=== PATIENT | female | born 1955 | race Caucasian/White ===

== ENCOUNTER 2016-08-01 01:11 | Inpatient (IN) | payer OTHER ==
[~2016-08-01] VITALS: Ht 154.9 cm; Wt 85.3 kg
[~2016-08-01 01:11] MED LIST: FEMARA2.5 M1 PO; HYDROCODON-ACE1 EAC2 PO; LIPITOR20 M2 PO; TRAMADOL HCL50 M1 PO; VITAMIN D2000 UNI1 PO
--- NOTE | 2016-08-01 10:04 | Admission Core Measures ---
Admission Meds I reviewed the following Meds: Current Medications Sig/Gaudencio Start time Last Medication Dose Stop Time Status Admin Acetaminophen 975 MG ONCE 08/01 NR (Tylenol) 08/01 2358 Atorvastatin Calcium 20 MG DAILY 08/01 1000 UNVr (Lipitor) Cefazolin Sodium 2,000 MG ONCE 08/01 NR (Kefzol-Ancef Inj) 08/01 2358 Letrozole 2.5 MG DAILY 08/01 1000 UNVr (Femara 2.5MG) Oxycodone HCl 10 MG ONCE 08/01 NR (Roxicodone) 08/01 2358 Acute Coronary Syndrome Inclusion Criteria ACS Diagnosis No Inpatient Core Measures LDL Reminder: If No, please order W/I first 24hr of stay Congestive Heart Failure Inclusion Criteria CHF Diagnosis No Cerebrovascular accident Inclusion Criteria CVA/TIA Diagnosis No Inpatient Core Measures Bedside Swallow Eval Reminder: If BSE failed, place ST order Antithrombotic Reminder: Order Antithrombotic Medication by end of day 2 Antithrombotic Reminder: Document Reason Antithrombotic Not ordered by end of day 2 AFIB/Flutter Reminder: If Present, add to problem list AFIB/Flutter Reminder: Order Anticoag Medication for pts with AFIB/Flutter Atherosclerosis Reminder: If Present, add to problem list LDL Reminder: If No, please order W/I first 24hr of stay PT Order Reminder: If No, please order Venous thromboembolism Inpatient Core Measures VTE Risk Factors: Age > 40, Surgery VTE Prophylaxis Ordered Inpt Mech & Pharm No Mech VTE prophylaxis d/t No contraindications No VTE Pharm Prophylaxis d/t No contraindications Inclusion Criteria - Per Current guidelines, there needs to be overlap - treatment for the first 5 days of Warfarin therapy. - Parenteral Anticoagulation (IV or SC) needs to be - given along with Warfarin therapy. VTE Diagnosis No VTE Type NONE VTE Confirmed by (Test) NONE Problem List As ranked by this Provider includes Assessment & Plan 1. Status post total hip replacement, left HOME MEDS Home Med List Atorvastatin Calcium (Lipitor) 20 MG TABLET 1 TAB PO DAILY CHOLESTEROL ( Reported) Cholecalciferol (Vitamin D3) (Vitamin D) 2,000 UNIT TABLET 4,000 UNIT PO DAILY SUPPLEMENT (Reported) Hydrocodone/Acetaminophen (Hydrocodon-Acetaminophen 5-325) 5 MG-325 MG TABLET 1 TAB PO PRN PAIN (Reported) Letrozole (Femara) 2.5 MG TABLET 1 TAB PO DAILY BREAST CANCER (Reported) Tramadol HCl 50 MG TABLET 1 TAB PO PRN PAIN (Reported)
--- NOTE | 2016-08-01 10:06 | Patient Discharge Instructions ---
Discharge Instructions General Discharge Information You were seen/treated for: Joint pain You had these procedures: total hip replacement Watch for these problems: See pre printed sheet Other wound care: See pre printed sheet Diet Recommended Diet: Low Fat Activity Activity Self Limited: Yes Activity Limited to: Weight bear as tolerated Acute Coronary Syndrome Inclusion Criteria At DC or during hospital stay patient has or had the following: ACS DIAGNOSIS No Discharge Core Measures Meds if any: Prescribed or Continued at Discharge Meds if any: NOT Prescribed or Continued at Discharge Congestive Heart Failure Inclusion Criteria At DC or during hospital stay patient has or had the following: CHF DIAGNOSIS No Discharge Core Measures Meds if any: Prescribed or Continued at Discharge Meds if any: NOT Prescribed or Continued at Discharge Cerebrovascular accident Inclusion Criteria At DC or during hospital stay patient has or had the following: CVA/TIA Diagnosis No Discharge Core Measures Meds if any: Prescribed or Continued at Discharge Meds if any: NOT Prescribed or Continued at Discharge Venous thromboembolism Inclusion Criteria VTE Diagnosis No VTE Type NONE VTE Confirmed by (Test) NONE Discharge Core Measures - Per Current guidelines, there needs to be overlap - treatment for the first 5 days of Warfarin therapy. - If discharged on Warfarin prior to 5 days of - overlap therapy, the patient will need to be - assessed for post discharge needs including - *Post discharge parental anticoagulation - *Warfarin and/or parental anticoagulation education - *Follow up date to check INR post discharge At least 5 days overlap therapy as Inpatient No Meds if any: Prescribed or Continued at Discharge Note: Overlap Therapy is Warfarin and Anticoagulant Meds if any: NOT Prescribed or Continued at Discharge
[2016-08-01] MEDS ORDERED: MS CONTIN15 M2 PO (10:11)
[2016-08-01] MEDS ORDERED: DILAUDID2 M1 PO (10:11)
[2016-08-01] MEDS ORDERED: MIRALAX17 G1 PO (10:11)
[2016-08-01] MEDS ORDERED: ASPIRIN EC325 M2 PO (10:11)
[2016-08-01] MEDS ORDERED: COLACE100 M1 PO (10:11)
--- NOTE | 2016-08-01 10:18 | Surg Short-stay <48hrs Dis Sum ---
Visit Information Visit Dates Admission Date: 08/01/16 Discharge Date: 08/01/16 Surgical Short Stay DC Summary Admission Diagnosis: Joint pain Final Diagnosis: s/p total hip replacement Procedure(s): See operative report Summary/Significant Findings: Pt underwent left total hip replacement by Dr Landry. Post op she was able to tolerated a diet, her pain was well controlled with medication, she was able to void spontaneously and she was seen by PT and cleared for discharge home with services. Condition at Discharge: good Discharge Disposition: home health services Discharge instructions provided to patient/family: Yes Post discharge follow-up plan: Keep scheduled appointment with Dr Landry
--- NOTE | 2016-08-01 13:46 | RADIOLOGY REPORT ---
EXAMINATION: XR HIP, LEFT CLINICAL INFORMATION: Total hip prosthesis. COMPARISON: None. TECHNIQUE: Two views of the left hip. FINDINGS: A left total hip prosthesis is present and is in good position. No fractures or dislocations are seen. There is no evidence of prosthesis loosening. IMPRESSION: Normal-appearing left total hip prosthesis.
--- NOTE | 2016-08-01 14:10 | PN- Orthopedic ---
Subjective Subjective: Postop check Patient is now postoperative day #0 status post left total hip arthroplasty. She was seen in PACU. No major complaints of pain. She was tolerating sips of water. No nausea or vomiting. Guy catheter was just removed. Still awaiting void. Since my visit with the patient, she was transferred to the general medical floor and has already been successfully mobilized into a chair. Denies headache, dizziness, chest pain, shortness of breath. Objective Vital Signs and I&Os Vitals are stable. Pt is afebrile. Physical Exam: Gen.: Patient is awake and alert. No acute distress. Cardiac: Regular. No murmurs appreciated. Pulmonary: Lungs are clear to auscultation bilaterally. No wheezes or rales are appreciated. Extremities: The anterior hip dressing is clean, dry, and intact. There is no significant drainage appreciated. Mild thigh swelling is noted, but within expected limits. The operative leg is warm and sensation is intact from the thigh down to the toes bilaterally. Strength of dorsiflexion and plantar flexion are 4-5 on the operative side. Palpable pedal pulses. Assessment/Plan Assessment/Plan Patient is a 60-year-old female who is now postoperative day #0 status post left total hip arthroplasty. She remains stable from a surgical standpoint. Plan: -PT consult for mobilization. WBAT with rolling walker. -Pain control with morphine for now. Po dilaudid when tolerating po. -Advance diet as tolerated. Heplock IV when tolerating adequate po. -Zofran for nausea as needed. -Colace and miralax for bowel regimen. -ASA 325 bid for DVT ppx. Alps and Demario's as well. -Ancef x 2 doses for prophylaxis. -Home meds resumed, including b winston. -Await void. -Plan for discharge most likely today. Core Measures/Miscellaneous Venous Thromboembolism VTE Risk Factors: Age > 40, Cancer/chemo/oth therapy, Surgery VTE Contraindications: No Contraindications VTE Prophylaxis Ordered Inpt: Mech & Pharm VTE Diagnosis: No VTE Type: NONE VTE Confirmed by (Test): NONE Beta Winston Is Beta Winston a Home Med? No Antibiotics Is Patient on Antibiotics? Yes If Yes: prophylaxis
[2016-08-01 14:41] VITALS: BP 110/70
--- NOTE | 2016-08-01 16:32 | NUR ---
1600: PT A/O X3. PT ON RA. VSS. PAIN CONTROLLED WITH DAULDID PO. PT CONSUMED 100% OF MEAL WITH NO N/V. PT OOB W RW W SUPERVISON. DURACOLD X 2 FOR HOME. IV REMOVED. PT SENT HOME W DSD SUPPLIES FOR L HIP SX SITE. PT VERBALIZED UNDERSTANDING OF DISCHARGE INSTRUCTIONS RELATED TO SURGERY. DSD PRESENT TO L HIP W NO DRAINAGE.
--- NOTE | 2016-08-01 16:44 | Operative Report ---
Operative/Inv Procedure Report Surgery Date: 08/01/16 Name of Procedure: Left total hip replacement Pre-Operative Diagnosis: Primary left hip DJD Post-Operative Diagnosis: Same Estimated Blood Loss: 250 Surgeon/Pecan Huller: SKYE REYEZ,PIPPA Maxwell Anesthesia: block Operative/Procedure Note Note: Description of Procedure: The patient was taken to the operating room and positively identified. After induction of spinal anesthesia and administration of appropriate pre-operative antibiotics, the patient was positioned supine on the operating room table and all bony prominences were well padded. After performing a surgical timeout, the left lower extremity was prepped and draped in the usual sterile fashion. A direct anterior approach was made to the left hip. The incision was carried sharply through superficial soft tissues to the level of the fascia. Meticulous hemostasis was maintained with Bovie electocautery. The fascia over the tensor fascia mu muscle was opened sharply and the interval between the TFL and the sartorius was entered bluntly taking care to stay lateral to the lateral femoral cutaneous nerve. Retractors were placed around the femoral neck and the pericapsular fat was identified. The ascending branches of the lateral femoral circumflex vessels were identified and carefully coagulated. The pericapsular fat and anterior capsule were then resected. A napkin ring osteotomy was performed and the femoral head was removed without difficulty. Attention was then turned to the acetabulum. After appropriate placement of retractors, the acetabulum was exposed. Soft tissue was cleaned from the acetabular margin and notch. Overhanging osteophytes were removed and the teardrop was exposed. The acetabulum was then sequentially reamed to accept a 52 mm Lincoln Tritanium hemispherical solid back shell. This was impacted into place in the appropriate position and fitted with a 32 mm Trident X3 zero degree polyethylene insert. Attention was then turned to the femur. After performing the appropriate ligament releases, the proximal femur was exposed. It was then sequentially broached to accept a size 4 Lincoln accolade 2 stem. This was trialed for leg length and stability. The trial component was removed and the final component was impacted into place. The trunnion was carefully cleaned and fit with a 32 mm, +0 Biolox delta ceramic femoral head. The hip was reduced and put through a full range of motion and found to be stable. The articular space was then irrigated with sterile saline. The periarticular soft tissues were infilitrated with Marcaine. The fascial layer was closed with interrupted #1 vicryl suture and the skin was re-approximated with interrupted 2 -0 vicryl. The skin was closed with a running 3-0 V-Lock suture. Steri-strips and a sterile dressing were applied. The patient was awakened and taken to the recovery room in satisfactory condition.
== END 2016-08-01 16:45 | disposition home health service (06) | DRG 470 ==
LOC: ENRESERVTM → ENRESERVDT → SDA 01:11 → 2NA 14:18
PROVIDERS: ADMIT Orthopaedic Surgery
PROC: 0SRB04A Replacement of Left Hip Joint with Ceramic on Polyethylene Synthetic Substitute, Uncemented, Open Approach (ICD-10-PCS; principal; 2016-08-01)
DX: M16.12 Unilateral primary osteoarthritis, left hip (principal); E66.9 Obesity, unspecified; E78.5 Hyperlipidemia, unspecified; Z85.3 Personal history of malignant neoplasm of breast; Z68.35 Body mass index [BMI] 35.0-35.9, adult
CPT/HCPCS: 2NAP; 73502-LT; 88304; 97110-GO; 97116-GO; 97161-GP; 97530-GO; J0690; J0735; J2405; J7042